=== PATIENT | male | born 1965 | race Caucasian/White ===

== ENCOUNTER 2018-12-09 10:29 | Outpatient (CLI) | payer BC ==
--- NOTE | 2018-12-09 11:14 | RAD ---
2 VIEW ABDOMEN: Date: 12/09/18 Supine and upright views obtained. A total of 4 images. INDICATION: Abdominal distention and constipation. FINDINGS: No evidence of free intraperitoneal air. There is scattered stool and gas throughout the colon. The s mall bowel gas pattern is nonspecific with mild increased small bowel gas without dilatation. IMPRESSION: Nonspecific bowel gas pattern. POS: [facility]
== END 2018-12-09 10:30 | disposition home or self-care (01) ==
LOC: BICRAD 10:29
PROVIDERS: ATTEND Internal Medicine
DX: K59.00 Constipation, unspecified (principal); R10.12 Left upper quadrant pain; R14.0 Abdominal distension (gaseous)
CPT/HCPCS: 74019